=== PATIENT | male | born 1940 | race Caucasian/White ===

== ENCOUNTER 2020-08-16 21:45 | Inpatient (IN) | payer MEDICARE, BC ==
[~2020-08-16] VITALS: Ht 165.1 cm; Wt 49.8 kg
--- NOTE | 2020-08-16 22:05 | PHYS DOC ---
Adult General Chief Complaint Chief Complaint: ALTERED MENTAL STATUS HPI HPI HPI provided by patient's who is being admitted to [facility] intensive care unit. HPI is limited related to patient's cognition. 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 Patient's believes he has hypertension and is unsure of his other health history. Patient's is unsure of what medications he takes at home. Patient's states that he is not ill and she is not con cerned of his health at this time, states that she cares for him at home by feeding him and caring for his activities of daily living. Patient has no complaints. Patient was admitted to the emergency department here at [facility] for social admit to the [facility] inpatient unit related to his 's condition. (HECTOR CALDERON APRN) Review of Systems Review of Systems 14 body systems of review of systems have been reviewed. See HPI for pertinent positives and negative responses, otherwise all other systems are negative, nonpertinent or noncontributory. (HECTOR CALDERON APRN) Physical Exam Physical Exam Constitutional: Well developed, well nourished, no acute distress, non-toxic appearance. HENT: Normocephalic, atraumatic, bilateral external ears normal, oropharynx moist, no oral exudates, nose normal. Eyes: PERRLA, EOMI, conjunctiva normal, no discharge. Neck: Normal range of motion, no tenderness, supple, no stridor. Cardiovascular:Heart rate regular rhythm, no murmur Lungs & Thorax: Bilateral breath sounds clear to auscultation Abdomen: Bowel sounds normal, soft, no tenderness, no masses, no pulsatile masses. Skin: Warm, dry, no erythema, no rash. Back: No tenderness, no CVA tenderness. Extremities: No tenderness, no cyanosis, no clubbing, ROM intact, no edema. Neurologic: Alert and oriented X 0, normal motor function, normal sensory function, no focal deficits noted. Patient is unable to answer any orientation questions correctly. Patient's states this is normal for him. Patient has no other neurological deficits, patient had CVA 8 years ago with severe cognitive deficits. Patient speaks in full clear sentences, follows commands. Psychologic: Normal affect, normal mood. (HECTOR CALDERON APRN) EKG EKG [] (HECTOR CALDERON APRN) Radiology/Procedures Radiology/Procedures [] (HECTOR CALDERON APRN) Heart Score C/O Chest Pain: No Risk Factors: Risk Factors: DM, Current or recent (<one month) smoker, HTN, HLP, family history of CAD, obesity. Risk Scores: Risk Factors: DM, Current or recent (<one month) smoker, HTN, HLP, family history of CAD, obesity. (HECTOR CALDERON APRN) Course & Med Decision Making Course & Med Decision Making Pertinent Labs and Imaging studies reviewed. (See chart for details) 79-year-old male, vital signs reviewed, presents to the emergency department with his today. Patient's requires admission to the intensive care unit. Patient has a history of a CVA from 8 years ago and requires full and total care by his . Related to patient's being admitted to the hospital, no other family members are available, patient will be admitted socially to [facility]. Discussed case with Dr. Sarkar who agreed to accept patient for social admit to [facility]. Patient will be admitted to medical surgical unit while is being cared for in the ICU. (HECTOR CALDERON APRN) Course & Med Decision Making Discussed patient's care with MOTOR ASSEMBLER. Agree with MOTOR ASSEMBLER's work-up and disposition. (VAL MCGOVERN MD) Dragon Disclaimer Dragon Disclaimer This electronic medical record was generated, in whole or in part, using a voice recognition dictation system. (HECTOR CALDERON APRN) Departure Departure: Impression: Primary Impression: Hospital admission due to social situation Additional Impression: History of CVA in adulthood Disposition: ADMITTED INPT THIS HOSP Admitting Physician: Natacha Sarkar (Admission to [facility] for social situation at home patient unable to care for self, Dr. Sarkar has assumed patient care for admission.) (HECTOR CALDERON APRN) Condition: GOOD Referrals: DARION DEL CID MD (PCP) Problem Qualifiers HECTOR CALDERON APRN Aug 16, 2020 22:05 VAL MCGOVERN MD Aug 16, 2020 22:16
--- NOTE | 2020-08-16 23:40 | NUR ---
The patient, NACHO ELLIS, 79 y/o, M admitted by HARRY HAWKINS MD, was given written information regarding hospital policies, unit procedures and contact persons. Pt ambulated independently to room 111, accompanied by ED RN. Pt here for social situation. Pt's Krysten is his primary caregiver and she required admission to our ICU tonight. Per , pt had a CVA 8 years ago and has severe residual cognitive deficits. Pt is not safe to return home without her and has no one else to care for him. Pt responds to name, but is otherwise disoriented. Pt's normally feeds him and assists with ADL's at home. Pt follows directions and was able to toilet himself when showed to the restroom. Will consult sample case porter. Discussed POC, pt unable to verbalize understanding. Pt readied for HS and currently resting in bed with alarm set for safety. Call light in reach. Valuables were checked and logged. Left in room with pt.
[2020-08-16 23:45] VITALS: BP 161/83
[2020-08-17 06:10] VITALS: BP 129/74
[2020-08-17 08:45] LABS: BASO % 1 % (0-3); EOS # 0.1 x10^3/uL (0.0-0.7); EOS % 2 % (0-3); HEMATOCRIT 44.6 % (39.0-53.0); LYMPH % 23 % (24-48); MEAN CORPUSCULAR HEMOGLOBIN 31 pg (25-35); MEAN CORPUSCULAR HGB CONC 34 g/dL (31-37); MEAN CORPUSCULAR VOLUME 92 fL (79-100); MONO # 0.4 x10^3/uL (0.0-1.1); MONO % 10 % (0-9); NEUT # 2.7 x10^3uL (1.8-7.7); NEUT % 64 % (31-73); PLATELET COUNT 154 x10^3/uL (140-400); RED BLOOD COUNT 4.85 x10^6/uL (4.30-5.70); RED CELL DISTRIBUTION WIDTH 12.9 % (11.5-14.5); WHITE BLOOD COUNT 4.2 x10^3/uL (4.0-11.0)
[2020-08-17 08:57] LABS: ALBUMIN 3.8 g/dL (3.4-5.0); ALBUMIN/GLOBULIN RATIO 1.4 (1.0-1.7); CALCIUM 8.5 mg/dL (8.5-10.1); CREATININE 0.9 mg/dL (0.7-1.3); GFR 81.4; POTASSIUM 3.8 mmol/L (3.5-5.1); TOTAL BILIRUBIN 0.6 mg/dL (0.2-1.0); TOTAL PROTEIN 6.5 g/dL (6.4-8.2)
[2020-08-17] MEDS ORDERED: MIRT7.5T8 PO (10:02)
[2020-08-17] MEDS ORDERED: ASPI-630 PO (10:02)
[2020-08-17] MEDS ORDERED: LANS30CA PO (10:02)
[2020-08-17] MEDS ORDERED: PRAV80TA2 PO (10:02)
[2020-08-17] MEDS ORDERED: EZET10TA20 PO (10:02)
--- NOTE | 2020-08-17 15:16 | SSS ---
ADMIT DATE: 08/17/2020 HISTORY OF PRESENT ILLNESS: The patient is a 79-year-old male patient who was admitted to [facility] as his was admitted with acute onset of atrial fibrillation with rapid ventricular response and nobody is in to take care of him. He apparently has known history of CVA approximately 8 years ago with severe cognitive deficit and therefore, he was admitted for observation and to consult our administrator social welfare department to see if the patient can be placed in a jail facility while his is still here in the hospital. The patient himself denied any complaint. In fact he seemed to be a lot more functional than his . PAST MEDICAL HISTORY: Significant for hypertension, hyperlipidemia, and gastroesophageal reflux disease. PAST SURGICAL HISTORY: Unremarkable. ALLERGIES: He has no known drug allergies. MEDICATIONS: He is currently on following medications: He is on Zetia 10 mg once a day, pravastatin 80 mg once a day, aspirin 81 mg once a day, mirtazapine 7.5 mg at bedtime, and lansoprazole 30 mg once a day. FAMILY HISTORY: Noncontributory. SOCIAL HISTORY: He is , lives with his . He does not smoke, drink alcohol or use recreational drugs. REVIEW OF SYSTEMS: As per history of present illness. PHYSICAL EXAMINATION: GENERAL: When I examined him, he was sitting comfortably in his chair, in no apparent distress. No pallor or jaundice. He was somewhat pale, but not jaundiced, cyanosis or thyromegaly. No jugular venous distension. No limb edema. VITAL SIGNS: His heart rate was 89, blood pressure was 161/83, temperature was 97.8, respiratory rate was 18 and oxygen saturation was 97% on room air. HEAD, EYES, EARS, NOSE AND THROAT: Showed normocephalic, atraumatic. NECK: Supple. HEART: Normal first and second heart sounds. No gallop, rub or murmur. CHEST: Clear to auscultation. No crepitation or rhonchi. ABDOMEN: Distended, soft, nontender. NEUROLOGIC: He is awake, alert, responding appropriately. All cranial nerves intact. EXTREMITIES: He moves extremities without difficulty, ambulates without assistance or assistive devices. LABORATORY DATA: His lab work on admission showed a white cell count of 4200, hemoglobin 15, hematocrit 44, MCV 92, and platelet count of 154,000 with normal manual differential. His chemistry showed a serum sodium 142, potassium 3.8, chloride 103, bicarbonate 31, anion gap of 8, BUN 17, creatinine 0.9, estimated GFR was 81 mL per minute. His glucose was 98, calcium was 8.5. Total bilirubin, AST, ALT, alkaline phosphatase were normal. Total protein 6.5, albumin was 3.8. His rapid coronavirus testing was negative. ASSESSMENT AND PLAN: In summary, this is social admission as the patient is unable to take care of himself, his was admitted to the ICU. We will reconcile all his medication and we have already consulted the geriatric social worker and apparently he was accepted at [facility] and will be discharged there and his would be also discharged there once her the heart rate is well controlled. HARRY HAWKINS MD DR: ADAM/hue JOB#: [id number] / [id number]
--- NOTE | 2020-08-17 15:31 | NUR ---
NURSING NOTE DISCHARGE PT DISCHARGED TO [facility] REPORT CALLED. PT PICKED UP BY TRANSPORT. PACKET SENT WITH PT WITH BOTTLE OF PILLS THAT WERE FOUND IN PT JACKET. ADARSH MALONE.
[2020-08-17] MEDS ORDERED: MIRTAZAPINE 7.5 MG TABLET. PO SCH (21:00)
[2020-08-18] MEDS ORDERED: EZETIMIBE 10 MG TABLET PO SCH (09:00)
[2020-08-18] MEDS ORDERED: ASPIRIN CHEWABLE 81 MG TABLET. PO SCH (09:00)
[2020-08-18] MEDS ORDERED: ATORVASTATIN CALCIUM 20 MG TABLET PO SCH (09:00)
[2020-08-18] MEDS ORDERED: PANTOPRAZOLE 40 MG TABLET. PO SCH (09:00)
== END 2020-08-17 15:33 | DRG 309 ==
LOC: ER 21:45 → 1 SOUTH 22:20
PROVIDERS: ADMIT Internal Medicine; ATTEND Internal Medicine
DX: I48.91 Unspecified atrial fibrillation (principal); Z68.1 Body mass index [BMI] 19.9 or less, adult; E78.5 Hyperlipidemia, unspecified; I10 Essential (primary) hypertension; Z86.73 Personal history of transient ischemic attack (TIA), and cerebral infarction without residual deficits; F01.50 Vascular dementia, unspecified severity, without behavioral disturbance, psychotic disturbance, mood disturbance, and anxiety; K21.9 Gastro-esophageal reflux disease without esophagitis; Z79.01 Long term (current) use of anticoagulants; Z20.822 Contact with and (suspected) exposure to COVID-19; E66.9 Obesity, unspecified
CPT/HCPCS: 36415; 80053; 85025; 87426; 99285; U0003; 97116; 97530

== ENCOUNTER 2020-11-24 12:16 | Emergency (ER) | payer BC, MEDICARE ==
[~2020-11-24] VITALS: Ht 165.1 cm; Wt 49.8 kg
[~2020-11-24 12:16] MED LIST: ASPI-630 PO; EZET10TA20 PO; LANS30CA PO; MIRT7.5T8 PO; PRAV80TA2 PO
--- NOTE | 2020-11-24 12:29 | PHYS DOC ---
Past History Past Medical History: Hypertension, Stroke Past Surgical History: No Surgical History Alcohol Use: None General Adult EDM: Chief Complaint: EARACHE/EAR PAIN HPI: HPI: Patient is a 8-year-old male coming in via EMS for "clogged ears". Patient states that he has pressure and difficulty hearing. told EMS that they called primary care and they were instructed to call 911. No other complaints. Review of Systems: Review of Systems: All other systems within normal limits except for as noted in the HPI Current Medications: Current Meds: Current Medications Medications (Trade) Dose Ordered Sig/Ramiro Start Time Stop Time Status Last Admin Dose Admin Docusate Sodium (Colace Solution) 100 mg 1X ONCE 11/24/20 12:30 11/24/20 12:31 UNV Allergies: Allergies: Allergies Coded Allergies Type Severity Reaction Last Updated Verified No Known Allergies Allergy Unknown 08/16/20 Yes Physical Exam: PE: Constitutional: Well developed, well nourished, no acute distress, non-toxic appearance. [] HENT: Normocephalic, atraumatic, bilateral external ears normal with cerumen impaction canals bilateral, nose normal. [] Eyes: PERRLA, conjunctiva normal, no discharge. [] Neck: No rigidity, supple, no stridor. [] Cardiovascular: Regular rate and rhythm, brisk cap refill [] Lungs & Thorax: Non labored symmetric respirations, no tachypnea or respiratory distress [] Abdomen: Soft, nondistended. Skin: Warm, dry, no erythema, no rash. [] Back: Unremarkable Extremities: No deformities, range of motion grossly intact, no lower extremity edema [] Neurologic: Alert and oriented X 3, no focal deficits noted. [] Psychologic: Affect normal, judgement normal, mood normal. [] EKG: EKG: [] Radiology/Procedures: Radiology/Procedures: Bilateral ears soaked and irrigated with Colace suspension. Mild bleeding from both ears but canals otherwise normal. TMs erythematous appear intact. Patient states he can hear better and does not feel any pressure. Given prophylactic antibiotics to prevent otitis externa. [] Heart Score: C/O Chest Pain: No Risk Factors: Risk Factors: DM, Current or recent (<one month) smoker, HTN, HLP, family history of CAD, obesity. Risk Scores: Score 0 - 3: 2.5% MACE over next 6 weeks - Discharge Home Score 4 - 6: 20.3% MACE over next 6 weeks - Admit for Clinical Observation Score 7 - 10: 72.7% MACE over next 6 weeks - Early Invasive Strategies Course & Med Decision Making: Course & Med Decision Making Pertinent Labs and Imaging studies reviewed. (See chart for details) [] Dragon Disclaimer: Dragon Disclaimer: This electronic medical record was generated, in whole or in part, using a voice recognition dictation system. Departure Departure: Impression: Primary Impression: Impacted cerumen of both ears Disposition: HOME / SELF CARE / HOMELESS Condition: IMPROVED Referrals: DARION DEL CID MD (PCP) Patient Instructions: Cerumen Impaction Additional Instructions: Use antibiotic eardrops in both ears. 3 to 4 drops every 8 hours for 5 days. YASMEEN STOVER MD Nov 24, 2020 12:29
[2020-11-24] MEDS ORDERED: DOCUSATE 100 MG/10 ML SOLUTION. PO ONE (12:30)
[2020-11-24] MEDS ORDERED: NEOMYCIN/POLYMYXIN/HC OTIC SUSPENSION 10ML BOTTLE. AU ONE (13:30)
[2020-11-24 13:42] VITALS: BP 132/80
== END 2020-11-24 13:43 | disposition home or self-care (01) ==
LOC: ER 12:16
DX: H61.23 Impacted cerumen, bilateral (principal); I10 Essential (primary) hypertension
CPT/HCPCS: 99283